=== PATIENT | male | born 1975 | race Caucasian/White ===

== ENCOUNTER 2024-02-20 21:44 | Emergency (ER) | payer MEDICAID ==
[~2024-02-20] VITALS: Ht 190.5 cm; Wt 100.0 kg
[2024-02-20 21:46] VITALS: O2SAT 100
[2024-02-20] MEDS: ONDANSETRON HCL 4MG/2ML INJ IV STA (22:19)
[2024-02-20] MEDS: SODIUM CHLORIDE 0.9% 1,000 ML IV ONE (22:20)
[2024-02-20] MEDS: MORPHINE SULFATE 4 MG/ML INJ (FOR IV/IM USE) IV ONE (22:23)
[2024-02-20] MEDS: KETOROLAC 30MG/ML VIAL IV STA (22:25)
[2024-02-20 22:41] LABS: HEMATOCRIT. 32.7 % (42.0-52.0); HEMOGLOBIN. 11.1 g/dL (14.0-18.0); MEAN CORPUSCULAR HEMOGLOBIN 27.8 pg (28.0-32.0); MEAN CORPUSCULAR VOLUME 81.6 fL (80.0-94.0); MEAN PLATELET VOLUME 8.2 fl (7.4-10.4); PLATELET 324 x1000/uL (130-400); RED CELL DISTRIBUTION WIDTH 15.5 % (11.6-14.6); WHITE BLOOD COUNT 6.9 x1000/uL (4.5-11.0)
[2024-02-20 22:42] LABS: DIFFERENTIAL COMMENT 1
[2024-02-20 22:43] LABS: CHLORIDE 100 mEq/L (98-107); POTASSIUM 3.8 mEq/L (3.5-5.1); SODIUM 133 mEq/L (136-145)
[2024-02-20 22:44] LABS: CARBON DIOXIDE 27 mEq/L (21-32)
[2024-02-20 22:45] LABS: CALCIUM 9.5 mg/dL (8.7-10.4)
[2024-02-20 22:49] LABS: CREATININE 0.8 mg/dL (0.6-1.3); GLUCOSE 88 mg/dL (70-105); INR 0.9; PROTHROMBIN TIME 10.4 sec (9.6-11.0)
[2024-02-20 22:50] LABS: UREA NITROGEN BLOOD 11 mg/dL (9-23)
[2024-02-20 22:55] LABS: PLATELET ESTIMATE NORMAL
[2024-02-21] MEDS ORDERED: NAPR-1074 MT (01:21)
[2024-02-21 01:43] VITALS: BP 139/91; PULSE 66; RESP 12; TEMP 98.1
[2024-02-21] MEDS ORDERED: IOHEXOL-300 100 ML BOTTLE ONE (02:52)
== END 2024-02-21 01:43 | disposition home or self-care (01) ==
LOC: ER 21:44
DX: R10.32 Left lower quadrant pain (principal); I10 Essential (primary) hypertension; R56.9 Unspecified convulsions
CPT/HCPCS: 80048; 83605; 83690; 85025; 85610; 36415; 96361; 96374; 96375; 99285; 74177; J1885; J2405; J2270; J7030; Z7610 ×3; Q9967